=== PATIENT | female | born 1955 | race Caucasian/White ===

== ENCOUNTER 2024-11-27 11:02 | Emergency (ER) | payer MEDICARE ==
[~2024-11-27] VITALS: Ht 172.7 cm; Wt 67.8 kg
[2024-11-27] MEDS ORDERED: PRED50TA PO (12:57)
[2024-11-27] MEDS ORDERED: METH-798 PO (12:57)
[2024-11-27] MEDS: ketorolac trometh 15mg/ml vial 15 MG/ML ML IM ONE (12:59)
[2024-11-27 13:05] VITALS: BP 128/88; PULSE 86; RESP 16; TEMP 98.2; O2SAT 97
== END 2024-11-27 13:05 | disposition home or self-care (01) ==
LOC: ER 11:03
DX: M54.14 Radiculopathy, thoracic region (principal)
CPT/HCPCS: 96372; 99283; J1885

== ENCOUNTER 2024-12-04 02:43 | Emergency (ER) | payer MEDICARE ==
[~2024-12-04] VITALS: Ht 172.7 cm; Wt 65.9 kg
[~2024-12-04 02:43] MED LIST: METH-798 PO; PRED50TA PO
[2024-12-04 03:02] VITALS: TEMP 98.5
[2024-12-04] MEDS ORDERED: POLY119P2 PO (04:16)
[2024-12-04] MEDS ORDERED: BISA-78 PO (04:16)
[2024-12-04] MEDS: bisacodyl 5mg tablet.DR PO ONE (04:41)
[2024-12-04 04:47] VITALS: BP 126/78; PULSE 78; RESP 16; O2SAT 96
== END 2024-12-04 04:46 | disposition home or self-care (01) ==
LOC: ER 02:44
DX: K59.00 Constipation, unspecified (principal)
CPT/HCPCS: 74018; 99283